=== PATIENT | male | born 1990 | race Caucasian/White ===

== ENCOUNTER 2017-02-15 20:56 | Emergency (ER) | payer BC ==
[~2017-02-15] VITALS: Ht 185.4 cm; Wt 95.5 kg
[2017-02-15 21:31] VITALS: BP 141/71; TEMP 98.9
[2017-02-15 23:45] VITALS: PULSE 84
== END 2017-02-15 23:50 | disposition home or self-care (01) ==
LOC: COL.ER 20:56
DX: S81.812A Laceration without foreign body, left lower leg, initial encounter (principal); W20.8XXA Other cause of strike by thrown, projected or falling object, initial encounter; Y92.512 Supermarket, store or market as the place of occurrence of the external cause

== ENCOUNTER 2017-02-25 11:26 | Emergency (ER) | payer BC ==
[2017-02-25 11:33] VITALS: BP 130/80; PULSE 88; TEMP 98.4
== END 2017-02-25 11:38 | disposition home or self-care (01) ==
LOC: COL.ER 11:26
DX: S81.812D Laceration without foreign body, left lower leg, subsequent encounter (principal); X58.XXXD Exposure to other specified factors, subsequent encounter